=== PATIENT | male | born 1990 | race Caucasian/White ===

== ENCOUNTER 2018-10-23 17:16 | Emergency (ER) | payer OTHER ==
[2018-10-23 17:29] VITALS: BP 110/62
--- NOTE | 2018-10-23 18:46 | ED ---
Lower Extremity - HPI Summary HPI Summary: 28 yr old with left foot pain. Onset over the weekend when he was walking a lot. Location if the mid foot dorsum. He states he had some swelling and redness on Tuesday. Non today. No fever or chills. No other complaints. - History of Current Complaint Chief Complaint: UCLowerExtremity Stated Complaint: FOOT INJURY Time Seen by Provider: 10/23/18 17:48 Pain Intensity: 6 - Allergies/Home Medications Allergies/Adverse Reactions: Allergies Allergy/AdvReac Type Severity Reaction Status Date / Time environmental Allergy Congestion Uncoded 10/23/18 17:29 Home Medications: Home Medications NK [No Home Medications Reported] 10/23/18 [History Confirmed 10/23/18] PMH/Surg Hx/FS Hx/Imm Hx - Surgical History Surgery Procedure, Year, and Place: wrist fracture repair Infectious Disease History: No Infectious Disease History: Denies: Traveled Outside the [place] in Last 30 Days - Family History Known Family History: Positive: None - Social History Occupation: Employed Full-time Alcohol Use: Daily Substance Use Type: Reports: Marijuana Smoking Status (MU): Never Smoked Tobacco Review of Systems Constitutional: Negative Positive: Other - left foot pain All Other Systems Reviewed And Are Negative: Yes Physical Exam Triage Information Reviewed: Yes Vital Signs On Initial Exam: Initial Vitals Temp Pulse Resp BP Pulse Ox 98.6 F 66 18 110/62 99 10/23/18 17:25 10/23/18 17:25 10/23/18 17:25 10/23/18 17:25 10/23/18 17:25 Vital Signs Reviewed: Yes Appearance: Positive: Well-Appearing, No Pain Distress Skin: Positive: Warm, Skin Color Reflects Adequate Perfusion Head/Face: Positive: Normal Head/Face Inspection Eyes: Positive: EOMI ENT: Positive: TMs normal Respiratory/Lung Sounds: Positive: Clear to Auscultation, Breath Sounds Present Cardiovascular: Positive: RRR, Pulses are Symmetrical in both Upper and Lower Extremities. Negative: Murmur Abdomen Description: Negative: Distended Musculoskeletal: Positive: Other - left foot without swelling. No redness. No focal bone tenderness. He stands and bears weight well Neurological: Positive: Sensory/Motor Intact, Alert, Oriented to Person Place, Time, CN Intact II-III Psychiatric: Positive: Normal Diagnostics - Vital Signs Vital Signs Temp Pulse Resp BP Pulse Ox 10/23/18 17:25 98.6 F 66 18 110/62 99 - Laboratory Lab Statement: Any lab studies that have been ordered have been reviewed, and results considered in the medical decision making process. - Radiology left foot Radiology Interpretation Completed By: ED Physician - NAD Lower Extremity Course/Dx - Course Course Of Treatment: 28 yr old with left foot pain. DC home. FU with PMD. - Diagnoses Provider Diagnoses: Left foot pain Discharge - Sign-Out/Discharge Documenting (check all that apply): Patient Departure All imaging exams completed and their final reports reviewed: No - Discharge Plan Condition: Good Disposition: HOME Patient Education Materials: Foot Sprain (ED) Referrals: No Primary Care Phys,NOPCP [Primary Care Provider] - [facility] [place] [Outside] - Billing Disposition and Condition Condition: GOOD Disposition: Home
--- NOTE | 2018-10-24 13:00 | UC ---
- Progress Note Progress Note: RADIOLOGY REPORT REVIEWED. SOFT TISSUE SWELLING, NO FRACTURE IS SEEN. NO CHANGE IN MGMT. Course/Dx - Diagnoses Provider Diagnoses: Left foot pain Discharge - Sign-Out/Discharge Documenting (check all that apply): Post-Discharge Follow Up All imaging exams completed and their final reports reviewed: Yes - Discharge Plan Condition: Good Disposition: HOME Patient Education Materials: Foot Sprain (ED) Referrals: [facility] [Outside] No Primary Care Phys,NOPCP [Primary Care Provider] - - Billing Disposition and Condition Condition: GOOD Disposition: Home
== END 2018-10-23 19:05 | disposition home or self-care (01) ==
LOC: UCEAST 17:16
DX: M79.672 Pain in left foot (principal)
CPT/HCPCS: 99201; G0463